=== PATIENT | male | born 1955 | race Caucasian/White ===

== ENCOUNTER 2020-04-20 19:57 | Emergency (ER) | payer BC ==
[~2020-04-20] VITALS: Ht 185.4 cm; Wt 83.9 kg
[2020-04-20 20:00] VITALS: BP_SYST 144
[2020-04-20] MEDS ORDERED: NACL 0.9% 1,000 ML IV ONE ×2 (20:15→22:00)
[2020-04-20] MEDS ORDERED: ONDANSETRON HCL 4 MG/2 ML VIAL IVP ONE (20:15)
[2020-04-20 21:10] LABS: ANION GAP 12 (5-15); CALCIUM 7.9 mg/dL (8.4-11.0); CHLORIDE 93 mmol/L (98-107); CREATININE 1.03 mg/dL (0.55-1.30); GLUCOSE 90 mg/dL (70-99); POTASSIUM 3.6 mmol/L (3.5-5.1); SODIUM SERUM 128 mmol/L (136-145); UREA NITROGEN, BLOOD 12 mg/dL (8-21)
[2020-04-20 21:12] LABS: BASOPHILS # (AUTO) 0.1 K/uL (0.0-0.2); EOSINOPHILS # (AUTO) 0.3 K/uL (0.0-0.4); EOSINOPHILS % (AUTO) 2.7 % (0.0-4.0); HEMATOCRIT 46.3 % (36-54); HEMOGLOBIN 15.5 g/dL (14.0-18.0); LYMPHOCYTES # (AUTO) 3.8 K/uL (1.0-5.5); LYMPHOCYTES % (AUTO) 33.1 % (20.5-51.5); MEAN CORPUSCULAR HEMOGLOBIN 32 pg (27-31); MEAN CORPUSCULAR HGB CONC 34 % (32-36); MEAN CORPUSCULAR VOLUME 95 fL (79.0-98.0); MONOCYTES # (AUTO) 0.8 K/uL (0.0-1.0); NEUTROPHILS # (AUTO) 6.5 K/uL (1.8-7.7); NEUTROPHILS % (AUTO) 56.2 % (40.0-70.0); PLATELET COUNT (AUTO) 399 K/uL (130-430); RED BLOOD CELL COUNT(AUTO) 4.88 MIL/uL (4.2-6.2); RED CELL DISTRIBUTION WIDTH 13.8 % (9.0-15.0); WHITE BLOOD COUNT (AUTO) 11.5 K/uL (4.8-10.8)
[2020-04-20 21:15] LABS: ALANINE AMINOTRANSFERASE 18 U/L (12-78); ALBUMIN 3.6 g/dL (3.4-4.8); ALCOHOL, BLOOD 208 mg/dL (<10); ASPARTATE AMINOTRANSFERASE 18 U/L (10-37); PHOSPHORUS 3.9 mg/dL (2.7-4.5); TOTAL BILIRUBIN 0.3 mg/dL (0.0-1.0)
[2020-04-20 21:20] LABS: ACETAMINOPHEN < 1 ug/mL (1-30); GFR AFRICAN AMERICAN 94 mL/min (>90)
[2020-04-20 23:14] LABS: BARBITURATE, URINE NEGATIVE (NEG <=200); BENZODIAZEPINE, URINE POSITIVE (NEG <=150); CANNABINOID, URINE POSITIVE (NEG <=50); COCAINE, URINE NEGATIVE (NEG <=150); METHAMPHETAMINES SCREEN,URINE NEGATIVE (NEG <=500); OPIATE, URINE NEGATIVE (NEG <=100); PHENCYCLIDINE SCREEN,URINE NEGATIVE (NEG <=25); UR TRICYCLIC ANTIDEPRESSANTS NEGATIVE (NEG <=300); URINE AMPHETAMINE NEGATIVE (NEG <=500); URINE METHADONE NEGATIVE (NEG <=200); URINE OXYCODONE SCREEN NEGATIVE (NEG <=100); URINE PROPOXYPHENE SCREEN NEGATIVE (NEG <=300)
[2020-04-21 01:45] LABS: CALCIUM 7.3 mg/dL (8.4-11.0); CREATININE 0.97 mg/dL (0.55-1.30); POTASSIUM 4.2 mmol/L (3.5-5.1)
[2020-04-21 07:14] VITALS: BP_SYST 147
== END 2020-04-21 07:14 ==
LOC: SED 19:57
DX: T42.4X1A Poisoning by benzodiazepines, accidental (unintentional), initial encounter (principal); R45.851 Suicidal ideations; F10.129 Alcohol abuse with intoxication, unspecified; F32.9 Major depressive disorder, single episode, unspecified; Y90.7 Blood alcohol level of 200-239 mg/100 ml; Y92.89 Other specified places as the place of occurrence of the external cause
CPT/HCPCS: 36415; 80048; 80053; 80307; 83735; 84100; 85025; 93005; 96374; 99285; G0480; G0481; G0482; J2405; J7030

== ENCOUNTER 2022-12-17 00:56 | Emergency (ER) | payer OTHER, BC ==
[~2022-12-17] VITALS: Ht 185.4 cm; Wt 86.2 kg
[2022-12-17 01:05] VITALS: BP_SYST 190
--- NOTE | 2022-12-17 01:11 | NUR ---
Patient to ER bed 04 to gown for evaluation. Side rails up. Report given to ELIJAH ANNA.
[2022-12-17] MEDS ORDERED: LABETALOL HCL 20 MG/4 ML CARTRIDGE IVP ONE (01:15)
[2022-12-17] MEDS ORDERED: ASPIRIN 325 MG TABLET PO ONE (01:15)
[2022-12-17] MEDS ORDERED: NITROGLYCERIN 1 INCH (GM) OINT. TP ONE (01:15)
--- NOTE | 2022-12-17 01:30 | NUR ---
# 22 gauge angiocath placed to L wrist. Use of asceptic technique. Opsite placed over site. Blood return noted. Flushed with 10 cc of normal saline. No evidence of infiltration noted. Patient tolerated well.
--- NOTE | 2022-12-17 01:30 | NUR ---
ER Dr. Stroud at bedside examining patient.
--- NOTE | 2022-12-17 02:00 | NUR ---
# 20 gauge angiocath placed to L forearm. Use of asceptic technique. Opsite placed over site. Blood return noted. Flushed with 10 cc of normal saline. No evidence of infiltration noted. Patient tolerated well.
[2022-12-17 02:04] LABS: CALCIUM 9.5 mg/dL (8.4-11.0); CREATININE 1.74 mg/dL (0.55-1.30)
[2022-12-17 02:08] LABS: ALBUMIN 3.2 g/dL (3.4-4.8); TOTAL BILIRUBIN 0.3 mg/dL (0.0-1.0)
[2022-12-17 02:15] LABS: BASOPHILS # (AUTO) 0.1 K/uL (0.0-0.2); BASOPHILS % (AUTO) 0.7 % (0.0-2.0); EOSINOPHILS # (AUTO) 0.4 K/uL (0.0-0.4); EOSINOPHILS % (AUTO) 2.1 % (0.0-4.0); HEMATOCRIT 40.4 % (36-54); HEMOGLOBIN 13.2 g/dL (14.0-18.0); LYMPHOCYTES # (AUTO) 2.4 K/uL (1.0-5.5); LYMPHOCYTES % (AUTO) 13.8 % (20.5-51.5); MEAN CORPUSCULAR HEMOGLOBIN 30 pg (27-31); MEAN CORPUSCULAR HGB CONC 33 % (32-36); MEAN CORPUSCULAR VOLUME 91 fL (79.0-98.0); MONOCYTES % (AUTO) 5.6 % (1.7-9.3); NEUTROPHILS # (AUTO) 13.2 K/uL (1.8-7.7); NEUTROPHILS % (AUTO) 77.8 % (40.0-70.0); PLATELET COUNT (AUTO) 544 K/uL (130-430); RED BLOOD CELL COUNT(AUTO) 4.43 MIL/uL (4.2-6.2); RED CELL DISTRIBUTION WIDTH 13.8 % (9.0-15.0)
[2022-12-17] MEDS ORDERED: MORPHINE 4 MG INJ. 4 MG/ML VIAL IVP ONE ×3 (02:15→07:15)
[2022-12-17] MEDS ORDERED: iohexoL 300 mgI/mL, 150 ML INFUS..BTL IV ONE (02:45)
[2022-12-17 04:29] LABS: BILIRUBIN,URINE NEGATIVE (NEGATIVE); BLOOD, URINE NEGATIVE (NEGATIVE); CLARITY/URINE CLEAR (CLEAR); COLOR,URINE YELLOW (YELLOW); GLUCOSE,URINE NEGATIVE (NEGATIVE); KETONES,URINE NEGATIVE (NEGATIVE); LEUKOCYTE ESTERASE ,URINE NEGATIVE (NEGATIVE); NITRITE, URINE NEGATIVE (NEGATIVE); PROTEIN URINE NEGATIVE (NEGATIVE); UROBILINOGEN,URINE 0.2 (0.2-1.0)
[2022-12-17] MEDS ORDERED: ACETAMINOPHEN 500 MG TABLET ONE (04:30)
[2022-12-17] MEDS ORDERED: ACETAMINOPHEN 500 MG TABLET PO ONE (04:45)
[2022-12-17] MEDS ORDERED: cefTRIAXone 1 GM IVPB PREMIX 50 ML IV ONE (05:45)
[2022-12-17] MEDS ORDERED: NACL 0.9% 2,500 ML IV ONE (05:45)
[2022-12-17] MEDS ORDERED: AZITHROMYCIN 500 MG in NS 250 ML IV ONE (05:45)
[2022-12-17] MEDS ORDERED: AZITHROMYCIN 500 MG/VIAL (ZITHROMAX) IV ONE (05:47)
--- NOTE | 2022-12-17 07:23 | NUR ---
Report provided to ELIJAH Diez.
[2022-12-17] MEDS ORDERED: ESMOLOL HCL/SOD CL 250 ML IV PRN (07:30)
[2022-12-17] MEDS ORDERED: NITROPRUSSIDE SODIUM 25 MG/ML VIAL(NIPRIDE) IV ONE (08:41)
[2022-12-17] MEDS ORDERED: NITROPRUSSIDE SODIUM 50 MG in D5W 248 ML IV ONE (08:45)
[2022-12-17 09:21] VITALS: BP_SYST 151
--- NOTE | 2022-12-17 09:22 | NUR ---
Patient to be transferred to [facility]. Is being transferred due to higher level of care. Receiving facility has accepting physician and available space. ER physician has signed transfer form. Patient or responsible green party has agreed to transfer and signed form. Patient belongings inventoried and will be sent with patient. Copy of nursing notes, lab reports, EKG, Physicians Orders and X-rays to be sent with patient. Report called to JOHNNA at receiving facility. Receiving physician is ANDREAS. ambulance service has been called for transfer. ETA is 0900.
== END 2022-12-17 09:21 | disposition short-term general hospital (02) ==
LOC: SED 00:56
DX: R07.9 Chest pain, unspecified (principal); I20.9 Angina pectoris, unspecified; I74.09 Other arterial embolism and thrombosis of abdominal aorta; I10 Essential (primary) hypertension; A41.9 Sepsis, unspecified organism; Z79.899 Other long term (current) drug therapy; Z20.822 Contact with and (suspected) exposure to COVID-19
CPT/HCPCS: 99291; 71275; 96365; 71045; 96375; 87426; 80053; 85025; 87081; 36415; 93005; 74175; 96368; 83605; 81003; 96376; 87040; 72191; 76376; Q9967; J0456; J0696; J3490; J2270; J7060

== ENCOUNTER 2023-03-31 12:22 | Emergency (ER) | payer OTHER, BC | END 2023-03-31 15:13 | disposition left against medical advice (07) | LOC: SED 12:22 | DX: Z53.21 Procedure and treatment not carried out due to patient leaving prior to being seen by health care provider (principal) ==

== ENCOUNTER 2023-11-07 09:07 | Emergency (ER) | payer OTHER, BC ==
[~2023-11-07] VITALS: Ht 182.9 cm; Wt 74.8 kg
[2023-11-07 09:30] VITALS: BP_SYST 123; PULSE 105; RESP 20; TEMP 97.8; O2SAT 96
[2023-11-07 10:44] LABS: BASOPHILS # (AUTO) 0.1 K/uL (0.0-0.2); BASOPHILS % (AUTO) 0.9 % (0.0-2.0); EOSINOPHILS # (AUTO) 0.6 K/uL (0.0-0.4); EOSINOPHILS % (AUTO) 6.3 % (0.0-4.0); HEMATOCRIT 36.8 % (36-54); HEMOGLOBIN 12.8 g/dL (14.0-18.0); LYMPHOCYTES # (AUTO) 1.4 K/uL (1.0-5.5); LYMPHOCYTES % (AUTO) 13.8 % (20.5-51.5); MEAN CORPUSCULAR HEMOGLOBIN 33 pg (27-31); MEAN CORPUSCULAR HGB CONC 35 % (32-36); MEAN CORPUSCULAR VOLUME 94 fL (79.0-98.0); MONOCYTES % (AUTO) 9.8 % (1.7-9.3); NEUTROPHILS # (AUTO) 7.1 K/uL (1.8-7.7); NEUTROPHILS % (AUTO) 69.2 % (40.0-70.0); PLATELET COUNT (AUTO) 421 K/uL (130-430); RED BLOOD CELL COUNT(AUTO) 3.91 MIL/uL (4.2-6.2); RED CELL DISTRIBUTION WIDTH 13.8 % (9.0-15.0); WHITE BLOOD COUNT (AUTO) 10.3 K/uL (4.8-10.8)
[2023-11-07 10:57] LABS: ANION GAP 5 (5-15); CALCIUM 9.5 mg/dL (8.4-11.0); CARBON DIOXIDE 30 mmol/L (23-29); CHLORIDE 93 mmol/L (98-107); CREATININE 2.44 mg/dL (0.55-1.30); GFR AFRICAN AMERICAN 34 mL/min (>90); GLUCOSE 105 mg/dL (74-106); POTASSIUM 4.2 mmol/L (3.5-5.1); SODIUM SERUM 128 mmol/L (136-145); UREA NITROGEN, BLOOD 39 mg/dL (8-21)
[2023-11-07 11:03] LABS: ALANINE AMINOTRANSFERASE 10 U/L (12-78); ALBUMIN 3.4 g/dL (3.4-4.8); ASPARTATE AMINOTRANSFERASE 8 U/L (10-37); BILIRUBIN,DIRECT 0.2 mg/dL (0.0-0.3); TOTAL BILIRUBIN 0.4 mg/dL (0.0-1.0); TOTAL PROTEIN, SERUM 7.8 g/dL (6.4-8.3)
[2023-11-07 11:10] LABS: GFR NON AFRICAN-AMERICAN 28 mL/min (>90)
[2023-11-07] MEDS ORDERED: ONDANSETRON HCL 4 MG/2 ML VIAL IVP ONE (11:15)
[2023-11-07] MEDS ORDERED: MORPHINE 4 MG INJ. 4 MG/ML VIAL IVP ONE (11:15)
[2023-11-07] MEDS ORDERED: NACL 0.9% 1,000 ML IV ONE (11:45)
[2023-11-07 14:19] VITALS: BP_SYST 141; PULSE 91; RESP 18; TEMP 97.7; O2SAT 93
== END 2023-11-07 14:18 | disposition home or self-care (01) ==
LOC: SED 09:07
DX: S20.211A Contusion of right front wall of thorax, initial encounter (principal); Z79.899 Other long term (current) drug therapy; V49.40XA Driver injured in collision with unspecified motor vehicles in traffic accident, initial encounter; Y93.89 Activity, other specified; Y92.89 Other specified places as the place of occurrence of the external cause; Y99.8 Other external cause status
CPT/HCPCS: 99285; 70450; 96374; 96361; 96375; 80076; 80048; 85025; 84484; 36415; 93005; 71250; 72125; 76376; J2405; J2270; J7030

== ENCOUNTER 2024-02-18 10:29 | Inpatient (IN) | payer OTHER, BC ==
[~2024-02-18] VITALS: Ht 182.9 cm; Wt 56.7 kg
[2024-02-18 10:31] VITALS: BP_SYST 131; PULSE 102; RESP 20; TEMP 97.5; O2SAT 96
[2024-02-18] MEDS: KETOROLAC TROMETHAMINE 30 MG VIAL IVP ONE (11:26)
[2024-02-18 11:28] LABS: BASOPHILS # (AUTO) 0.1 K/uL (0.0-0.2); EOSINOPHILS # (AUTO) 0.2 K/uL (0.0-0.4); EOSINOPHILS % (AUTO) 1.5 % (0.0-4.0); HEMATOCRIT 34.7 % (36-54); HEMOGLOBIN 12.2 g/dL (14.0-18.0); LYMPHOCYTES # (AUTO) 1.1 K/uL (1.0-5.5); LYMPHOCYTES % (AUTO) 10.4 % (20.5-51.5); MEAN CORPUSCULAR HEMOGLOBIN 33 pg (27-31); MEAN CORPUSCULAR HGB CONC 35 % (32-36); MEAN CORPUSCULAR VOLUME 94 fL (79.0-98.0); MONOCYTES % (AUTO) 9.6 % (1.7-9.3); NEUTROPHILS # (AUTO) 8.4 K/uL (1.8-7.7); NEUTROPHILS % (AUTO) 77.5 % (40.0-70.0); PLATELET COUNT (AUTO) 337 K/uL (130-430); RED BLOOD CELL COUNT(AUTO) 3.68 MIL/uL (4.2-6.2); RED CELL DISTRIBUTION WIDTH 14.9 % (9.0-15.0); WHITE BLOOD COUNT (AUTO) 10.9 K/uL (4.8-10.8)
[2024-02-18 11:42] LABS: CALCIUM 8.6 mg/dL (8.4-11.0); CREATININE 1.81 mg/dL (0.55-1.30); POTASSIUM 4.7 mmol/L (3.5-5.1)
[2024-02-18] MEDS: MORPHINE 2 MG/ML INJ. SYRINGE IVP ONE (14:22)
[2024-02-18] MEDS: NACL 0.9% 1,000 ML IV ONE (14:22)
[2024-02-18] MEDS ORDERED: AMLO5TAB4 PO (16:56)
[2024-02-18] MEDS ORDERED: VENL37.58 PO (16:56)
[2024-02-18] MEDS ORDERED: OXYC20TA55 PO (16:56)
[2024-02-18] MEDS ORDERED: PERC10 PO (16:56)
[2024-02-18] MEDS ORDERED: BUPR75TA8 PO (16:56)
[2024-02-18 17:24] VITALS: BP_SYST 147; PULSE 91; RESP 20; TEMP 98.5; O2SAT 95
[2024-02-18] MEDS ORDERED: ONDANSETRON HCL 4 MG/2 ML VIAL IVP PRN (17:45)
[2024-02-18] MEDS ORDERED: ACETAMINOPHEN 325 MG TABLET PO PRN (17:45)
[2024-02-18] MEDS ORDERED: NALOXONE HCL 0.4 MG/ML AMP (NARCAN) IVP PRN (18:00)
[2024-02-18 19:00] VITALS: BP_SYST 145; PULSE 82; RESP 16; TEMP 98.4; O2SAT 96
[2024-02-18] MEDS: DOCUSATE SODIUM 250 MG CAPSULE PO ONE (19:37)
[2024-02-18] MEDS: NICOTINE 21 MG/24 HR PATCH.TD24 TD ONE (19:37)
[2024-02-18] MEDS: MORPHINE 2 MG/ML INJ. SYRINGE IVP PRN (19:37)
[2024-02-18 20:00] VITALS: BP_SYST 153; PULSE 85; RESP 18; TEMP 98.6; O2SAT 98
[2024-02-18] MEDS: DOCUSATE SODIUM 250 MG CAPSULE PO SCH (21:00)
[2024-02-18 21:30] VITALS: O2SAT 98
[2024-02-18] MEDS: OXYCODONE/ACETAMINOPHEN 5-325 TABLET PO PRN (22:32)
[2024-02-18] MEDS: TEMAZEPAM 15 MG CAPSULE PO SCH (22:40)
[2024-02-19 00:10] VITALS: BP_SYST 143; PULSE 89; RESP 18; TEMP 98.6; O2SAT 93
[2024-02-19 05:41] LABS: BASOPHILS # (AUTO) 0.1 K/uL (0.0-0.2); BASOPHILS % (AUTO) 0.7 % (0.0-2.0); EOSINOPHILS # (AUTO) 0.2 K/uL (0.0-0.4); EOSINOPHILS % (AUTO) 1.9 % (0.0-4.0); HEMATOCRIT 36.6 % (36-54); HEMOGLOBIN 12.7 g/dL (14.0-18.0); LYMPHOCYTES # (AUTO) 1.6 K/uL (1.0-5.5); LYMPHOCYTES % (AUTO) 16.9 % (20.5-51.5); MEAN CORPUSCULAR HEMOGLOBIN 33 pg (27-31); MEAN CORPUSCULAR HGB CONC 35 % (32-36); MEAN CORPUSCULAR VOLUME 95 fL (79.0-98.0); MONOCYTES % (AUTO) 10.2 % (1.7-9.3); NEUTROPHILS # (AUTO) 6.6 K/uL (1.8-7.7); NEUTROPHILS % (AUTO) 70.3 % (40.0-70.0); PLATELET COUNT (AUTO) 346 K/uL (130-430); RED BLOOD CELL COUNT(AUTO) 3.87 MIL/uL (4.2-6.2); RED CELL DISTRIBUTION WIDTH 14.4 % (9.0-15.0); WHITE BLOOD COUNT (AUTO) 9.4 K/uL (4.8-10.8)
[2024-02-19 06:15] LABS: ALBUMIN 3.3 g/dL (3.4-4.8); CALCIUM 8.8 mg/dL (8.4-11.0); CREATININE 1.43 mg/dL (0.55-1.30); POTASSIUM 3.7 mmol/L (3.5-5.1); TOTAL BILIRUBIN 0.8 mg/dL (0.0-1.0); TOTAL PROTEIN, SERUM 7.5 g/dL (6.4-8.3)
[2024-02-19 08:00] VITALS: BP_SYST 104; PULSE 97; RESP 18; TEMP 98.6; O2SAT 97
[2024-02-19] MEDS: NICOTINE 21 MG/24 HR PATCH.TD24 TD SCH (09:11)
[2024-02-19 11:03] VITALS: BP_SYST 115; PULSE 66; RESP 15; TEMP 98.2; O2SAT 97
[2024-02-19] MEDS ORDERED: CELE200C PO (11:58)
[2024-02-19] MEDS ORDERED: VENL150C53 PO (11:58)
[2024-02-19 16:16] VITALS: BP_SYST 117; PULSE 66; RESP 15; TEMP 98.1; O2SAT 97
[2024-02-19 19:59] VITALS: BP_SYST 127; PULSE 90; RESP 20; TEMP 98.1; O2SAT 94
[2024-02-19] MEDS ORDERED: TEMAZEPAM 15 MG CAPSULE PO SCH (21:00)
[2024-02-19 23:55] VITALS: BP_SYST 144; PULSE 91; RESP 18; TEMP 97.8; O2SAT 94
[2024-02-20 08:00] VITALS: BP_SYST 135; PULSE 98; RESP 16; TEMP 97.7; O2SAT 96
[2024-02-20 12:00] VITALS: BP_SYST 144; PULSE 69; RESP 18; TEMP 97.9; O2SAT 97
[2024-02-20 16:00] VITALS: BP_SYST 144; PULSE 104; RESP 20; TEMP 98.3; O2SAT 98
[2024-02-20] MEDS ORDERED: NALOXONE HCL 0.4 MG/ML AMP (NARCAN) IVP PRN (18:45)
[2024-02-20] MEDS ORDERED: HYDROcodone/ACETAMIN 10-325 MG TAB PO PRN (18:45)
[2024-02-20] MEDS ORDERED: OXYCODONE/ACETAMINOPHEN 5-325 TABLET PO PRN (19:15)
[2024-02-20 19:20] VITALS: BP_SYST 131; PULSE 96; RESP 18; TEMP 97.3; O2SAT 100
[2024-02-20] MEDS: OXYCODONE/ACETAMINOPHEN *10*mg/325 mg TABLET PO PRN (20:24)
[2024-02-20] MEDS: MORPHINE 2 MG/ML INJ. SYRINGE IVP PRN (20:57)
[2024-02-20 21:00] VITALS: O2SAT 100
[2024-02-21] VITALS: BP_SYST 144; PULSE 90; RESP 16; TEMP 98; O2SAT 94
[2024-02-21 08:00] VITALS: BP_SYST 131; PULSE 92; RESP 18; TEMP 98.1; O2SAT 95
[2024-02-21 14:51] VITALS: BP_SYST 131; PULSE 92; RESP 18; TEMP 98.1; O2SAT 95
== END 2024-02-21 15:10 | DRG 560 ==
LOC: SED 10:29 → SMU 13:48
PROVIDERS: ADMIT Internal Medicine; ATTEND Internal Medicine
DX: T84.030A Mechanical loosening of internal right hip prosthetic joint, initial encounter (principal); E44.1 Mild protein-calorie malnutrition; Z68.1 Body mass index [BMI] 19.9 or less, adult; I10 Essential (primary) hypertension; J44.9 Chronic obstructive pulmonary disease, unspecified; Z96.641 Presence of right artificial hip joint; F41.9 Anxiety disorder, unspecified; F17.200 Nicotine dependence, unspecified, uncomplicated; F32.A Depression, unspecified; W01.0XXA Fall on same level from slipping, tripping and stumbling without subsequent striking against object, initial encounter; Z79.899 Other long term (current) drug therapy; Y93.89 Activity, other specified; Y92.89 Other specified places as the place of occurrence of the external cause; Y99.8 Other external cause status
CPT/HCPCS: 36415; 72192-TC; 73502; 80048; 80053; 85025; 96361; 96374; 96375; 97110-GP; 97116-GP; 97530-GP; 99285; J1885; J2270